=== PATIENT | male | born 1960 | race African-American/Black ===

== ENCOUNTER 2018-09-05 01:51 | Emergency (ER) | payer OTHER, MEDICARE ==
[~2018-09-05] VITALS: Ht 185.4 cm; Wt 112.9 kg
--- NOTE | 2018-09-05 02:06 | NUR ---
PT PRESENTED WITH C/O LEFT SIDED LOWER BACK PAIN THAT RADIATES DOWN LEG X 4 DAYS. MONITORS APOPLIED, SIDERAILS UP X2, CALL LIGHT WITHIN REACH. ERP AT BEDSIDE FOR EVAL
[2018-09-05] MEDS ORDERED: DABI75CA3 PO (02:18)
[2018-09-05] MEDS ORDERED: KETOROLAC 60 MG/2 ML ONE (02:20)
[2018-09-05] MEDS ORDERED: METHOCARBAMOL 750 MG TABLET ONE (02:20)
--- NOTE | 2018-09-05 02:26 | NUR ---
PT MEDICATED PER MAR
[2018-09-05] MEDS ORDERED: METHOCARBAMOL 750 MG TABLET PO ONE (02:30)
[2018-09-05] MEDS ORDERED: KETOROLAC 30 MG/1 ML IM ONE (02:30)
[2018-09-05] MEDS ORDERED: HYDROmorphone 2 MG/ML, 1ML ONE (03:28)
[2018-09-05] MEDS ORDERED: HYDROmorphone 1 MG/ML, 1ML INJ IM ONE (03:30)
--- NOTE | 2018-09-05 03:32 | NUR ---
PT RESTING ON GURNEY, MEDICATED FOR PAIN, CALL LIGHT WITHIN REACH
[2018-09-05 03:54] VITALS: BP 121/76
== END 2018-09-05 04:06 | disposition home or self-care (01) ==
LOC: ED 03:10
DX: S39.012A Strain of muscle, fascia and tendon of lower back, initial encounter (principal); M54.42 Lumbago with sciatica, left side; X58.XXXA Exposure to other specified factors, initial encounter; Y93.89 Activity, other specified; Y99.8 Other external cause status; Y92.89 Other specified places as the place of occurrence of the external cause
CPT/HCPCS: 96372; 99283; J1170; J1885